=== PATIENT | male | born 1955 | race Caucasian/White ===

== ENCOUNTER 2019-02-19 03:23 | Inpatient (IN) | payer MEDICARE, MEDICAID ==
[~2019-02-19] VITALS: Ht 170.2 cm; Wt 104.3 kg
[2019-02-19 08:00] VITALS: BP 167/86
--- NOTE | 2019-02-19 09:17 | NUR ---
late entry due to downtime. patient admitted to 304. see downtime paper
--- NOTE | 2019-02-19 09:46 | NUR ---
RN note Patient checked in the room, in stable condition. Needs attended. at bedside. No distress, no SOB, denied pain or discomfort. Safety precautions initiated. Will monitor accordingly.
[2019-02-19] MEDS ORDERED: NITROGLYCERIN 0.4 MG/TAB BOTTLE SL PRN (10:00)
[2019-02-19] MEDS ORDERED: ZOLPIDEM TARTRATE 5 MG TABLET PO PRN (10:00)
[2019-02-19] MEDS ORDERED: ACETAMINOPHEN 325 MG TABLET PO PRN (10:00)
[2019-02-19] MEDS ORDERED: MAG HYDROX/AL HYDROX/SIMETH 30 ML UDC PO PRN (10:00)
[2019-02-19] MEDS ORDERED: HYDROCODONE/APAP 5/325MG 1 EACH TABLET PO PRN (10:00)
[2019-02-19] MEDS ORDERED: MORPHINE SULFATE INJ 2 MG/ML DISP.SYRIN IV PRN (10:00)
[2019-02-19] MEDS ORDERED: ONDANSETRON HCL/PF 4 MG/2 ML VIAL IVP PRN (10:00)
[2019-02-19] MEDS ORDERED: MAGNESIUM HYDROXIDE 30 ML UDC PO PRN (10:00)
--- NOTE | 2019-02-19 10:00 | NUR ---
RN note Patient seen by inspector watch train, Dr. Martin. Per MD, patient will have stress test. orders of NPO except meds. New orders noted and will carry out.
[2019-02-19] MEDS ORDERED: HYDR-4077 PO (10:50)
[2019-02-19] MEDS ORDERED: ERGO500040 PO (10:50)
[2019-02-19] MEDS ORDERED: ATOR40TA PO (10:50)
[2019-02-19] MEDS ORDERED: ESOM40CA52 PO (10:50)
[2019-02-19] MEDS ORDERED: FURO-144 PO (10:51)
[2019-02-19] MEDS ORDERED: NIFE60TA69 PO (10:51)
[2019-02-19] MEDS ORDERED: INSU100V37 SQ (10:51)
[2019-02-19] MEDS ORDERED: ICOS1CAP PO (10:51)
[2019-02-19] MEDS ORDERED: FOLI0.8T PO (10:51)
[2019-02-19] MEDS ORDERED: SEMA0.25 SQ (10:51)
[2019-02-19] MEDS ORDERED: FLUT1BLS6 IH (10:51)
[2019-02-19] MEDS ORDERED: VALS1TAB4 PO (10:51)
[2019-02-19] MEDS ORDERED: ASPI-869 PO (10:51)
[2019-02-19] MEDS ORDERED: ALBU18HF2 IH (10:51)
[2019-02-19] MEDS ORDERED: CARV6.252 PO (10:51)
[2019-02-19] MEDS ORDERED: GABA-534 PO (10:51)
[2019-02-19] MEDS ORDERED: SPIR25TA PO (10:51)
[2019-02-19] MEDS ORDERED: NITR0.4T48 SL (10:51)
[2019-02-19] MEDS ORDERED: GLIM4TAB4 PO (10:51)
[2019-02-19] MEDS ORDERED: IBUP-1955 PO (10:51)
[2019-02-19] MEDS ORDERED: INSU100I4 SQ (10:51)
[2019-02-19] MEDS ORDERED: MAGN400T26 PO (10:51)
[2019-02-19] MEDS ORDERED: FUROSEMIDE 40 MG/4 ML VIAL IV ONE (11:00)
[2019-02-19] MEDS ORDERED: REGADENOSON 0.4 MG/5 ML DISP.SYRIN IVP ONE (11:00)
[2019-02-19] MEDS: CARVEDILOL 6.25 MG TABLET PO SCH ×2 (11:49→21:00)
[2019-02-19] MEDS: CLONIDINE HCL 0.1 MG TABLET PO PRN (11:49)
[2019-02-19] MEDS: ASPIRIN EC 81 MG TABLET.DR PO SCH (11:49)
[2019-02-19 12:36] LABS: POTASSIUM 4.3 mmol/L (3.5-5.1)
[2019-02-19 12:37] LABS: BILIRUBIN,TOTAL 0.5 mg/dL (0.2-1.0); CALCIUM, SERUM 8.7 mg/dL (8.5-10.1); CREATININE 1.5 mg/dL (0.6-1.3)
[2019-02-19 12:38] LABS: ALBUMIN 3.6 g/dL (3.4-5.0); TOTAL PROTEIN, SERUM 7.4 g/dL (6.4-8.2)
--- NOTE | 2019-02-19 12:38 | NUR ---
RN note Patient picked up for Lexscan/stress test by [place] via wheelchair.
[2019-02-19 12:55] LABS: WHITE BLOOD COUNT (AUTO) 6.4 K/uL (4.3-11.0)
[2019-02-19 12:56] LABS: EOSINOPHILS % (AUTO) 2.4 % (0.0-6.0); HEMATOCRIT 31 % (39-51); HEMOGLOBIN 10.2 g/dL (13.5-17.5); LYMPHOCYTES # (AUTO) 0.7 /CMM (0.8-4.8); LYMPHOCYTES % (AUTO) 10.8 % (20.0-44.0); MEAN CORPUSCULAR HGB CONC 33 g/dl (31.0-36.0); MEAN CORPUSCULAR VOLUME 87 fL (80-96); MONOCYTES # (AUTO) 0.4 /CMM (0.1-1.30); MONOCYTES % (AUTO) 5.7 % (2.0-12.0); NEUTROPHILS # (AUTO) 5.1 /CMM (1.8-8.9); NEUTROPHILS % (AUTO) 80.1 % (43.0-81.0); PLATELET COUNT (AUTO) 186 /CMM (150-450); RED BLOOD CELL COUNT(AUTO) 3.58 MIL/uL (4.5-6.0)
[2019-02-19 12:57] LABS: BASOPHILS # (AUTO) 0.1 /CMM (0.0-0.2)
--- NOTE | 2019-02-19 13:30 | NUR ---
RN note Patient came back from stress test, denies pain or any discomfort. V/S: 151/61, 70, 16, 98.6, 96%. Given resumed diet and scheduled med. is at bedside. Call light within, will continue to monitor.
[2019-02-19] MEDS: hydrALAZINE HCL 50 MG TABLET PO SCH ×2 (13:45→17:12)
--- NOTE | 2019-02-19 14:52 | NUR ---
rn notes: release of med record Released of information consented and signed by patient. Called Dr Nik Ross, patient's fuel handler, and requested for patient's medical record (echocardiogram note and progress note).
--- NOTE | 2019-02-19 14:55 | NUR ---
rn notes Medical records from Dr Nik Ross's office received via fax. Flagged in the patient's chart
[2019-02-19 16:00] VITALS: BP 143/79
--- NOTE | 2019-02-19 19:45 | NUR ---
RN CLOSING NOTES PATIENT IN STABLE CONDITION. ALL NEEDS ATTENDED AND PROVIDED. ALL DUE MEDICATIONS GIVEN ORDERED. KEPT PATIENT SAFE AND COMFORTABLE. BED IN LOW/LOCKED POSITION, SIDERAILS UP X 2, CALL LIGHT IN REACH. ENDORSED TO NIGHT RN FOR YASIR.
--- NOTE | 2019-02-19 20:15 | NUR ---
NUCLEAR WORKER TECHNICIAN NOTES RECEIVED PATIENT AWAKE IN BED STABLE CONDITION. AT BEDSIDE, SAFETY MEASURES INPLACED, BED IN LOW/LOCKED POSITION, SIDERAILS UP X 2, CALL LIGHT WITH IN EASY REACH. PERIPHERAL IV ACCESS INTACT AND PATENT, NO SIGNS OF ACUTE RESPIRATORY OR CARDIAC DISTRESS NOTED, ALL NEEDS ATTENDED, KEPT COMFORTABLE, MONITORS ON AND WORKING PROPERLY. DENIES PAIN AT THIS TIME. WILL CONTINUE TO MONITOR ACCORDINGLY.
[2019-02-19 20:36] VITALS: BP 180/82
[2019-02-19] MEDS ORDERED: SIMVASTATIN 20 MG TABLET PO SCH (22:00)
[2019-02-20] VITALS: BP 180/82
[2019-02-20 00:01] VITALS: BP 182/89
[2019-02-20 00:40] VITALS: BP 156/88
[2019-02-20 02:36] LABS: APPEARANCE,URINE CLEAR (CLEAR); BILIRUBIN,URINE NEGATIVE (NEGATIVE); BLOOD, URINE NEGATIVE Ery/uL (NEGATIVE); COLOR,URINE YELLOW (YELLOW); KETONES,URINE NEGATIVE (NEGATIVE); LEUKOCYTE ESTERASE ,URINE NEGATIVE (NEGATIVE); NITRITE, URINE NEGATIVE (NEGATIVE); PROTEIN,URINE 100 mg/dl (NEGATIVE); UGLUCOSE NEGATIVE (NEGATIVE); UROBILINOGEN,URINE 0.2 EU/dL (0.2)
[2019-02-20 02:45] LABS: CREATININE, URINE 59.8 MG/DL (30.0-125.0); URINE TOTAL PROTEIN 132.5 mg/dL (0-11.9)
[2019-02-20 02:52] LABS: BACTERIA,URINE Few /HPF (None Seen); RBC,URINE 0-2 /HPF (0-2); SQUAMOUS EPITHELIAL CELL,UR Rare /HPF (None Seen)
[2019-02-20 04:35] LABS: EOSINOPHIL,URINE None Seen
--- NOTE | 2019-02-20 06:11 | NUR ---
SECOND BUTLER NOTES ALL NEEDS ATTENDED AND MET, PATIENT AWAKE IN BED STABLE CONDITION. ABLE TO REST AND SLEPT AT INTERVALS, SAFETY MEASURES IN PLACED, BED IN LOW/LOCKED POSITION, SIDE RAILS UP X 2, CALL LIGHT WITH IN EASY REACH. PERIPHERAL IV ACCESS INTACT AND PATENT, NO SIGNS OF ACUTE RESPIRATORY OR CARDIAC DISTRESS NOTED, ALL NEEDS ATTENDED, KEPT COMFORTABLE, MONITORS ON AND WORKING PROPERLY. DENIES PAIN AT THIS TIME. WILL ENDORSED TO AM NURSE FOR CONTINUITY OF CARE.
[2019-02-20 06:36] LABS: BASOPHILS % (AUTO) 0.8 % (0.0-2.0); EOSINOPHILS % (AUTO) 3.5 % (0.0-6.0); HEMATOCRIT 29 % (39-51); HEMOGLOBIN 9.9 g/dL (13.5-17.5); LYMPHOCYTES # (AUTO) 0.7 /CMM (0.8-4.8); LYMPHOCYTES % (AUTO) 11.7 % (20.0-44.0); MEAN CORPUSCULAR HGB CONC 34 g/dl (31.0-36.0); MEAN CORPUSCULAR VOLUME 86 fL (80-96); MONOCYTES # (AUTO) 0.5 /CMM (0.1-1.30); MONOCYTES % (AUTO) 8.2 % (2.0-12.0); NEUTROPHILS # (AUTO) 4.3 /CMM (1.8-8.9); NEUTROPHILS % (AUTO) 75.8 % (43.0-81.0); PLATELET COUNT (AUTO) 185 /CMM (150-450); RED BLOOD CELL COUNT(AUTO) 3.43 MIL/uL (4.5-6.0); WHITE BLOOD COUNT (AUTO) 5.7 K/uL (4.3-11.0)
[2019-02-20 07:04] LABS: ALBUMIN 3.5 g/dL (3.4-5.0); BILIRUBIN,TOTAL 0.5 mg/dL (0.2-1.0); CALCIUM, SERUM 8.5 mg/dL (8.5-10.1); CREATININE 1.6 mg/dL (0.6-1.3); MAGNESIUM 1.7 mg/dL (1.8-2.4); PHOSPHORUS 4.1 mg/dL (2.5-4.9); POTASSIUM 3.8 mmol/L (3.5-5.1); TOTAL PROTEIN, SERUM 7.2 g/dL (6.4-8.2)
[2019-02-20 07:08] LABS: THYROID STIMULATING HORMONE 2.829 uIU/mL (0.358-3.74)
[2019-02-20] MEDS: CLONIDINE HCL 0.1 MG TABLET PO PRN (07:17)
[2019-02-20 08:00] VITALS: BP 183/83
--- NOTE | 2019-02-20 08:00 | NUR ---
Tele/RN - Assessment Received patient in bed. Awake, alert and oriented 4, swazi speaking but speaks a little bit of engllish. No complaints of pain or discomfort. No complaints of chest pain noted. IV site noted on L hand with 20g, intact, no signs and symtoms of phlebitis or infliltration noted. Normal sinus rythym. Lung sounds clear. Respirations even and unlabored. All due medications administered, pt was given BP medications as ordered and scheduled. Tolerated well. No ASE noted.
[2019-02-20] MEDS: ASPIRIN EC 81 MG TABLET.DR PO SCH (08:42)
[2019-02-20] MEDS: hydrALAZINE HCL 50 MG TABLET PO SCH ×2 (08:42→13:01)
[2019-02-20] MEDS: CARVEDILOL 6.25 MG TABLET PO SCH (08:42)
[2019-02-20] MEDS ORDERED: HYDR-4077 PO (10:14)
[2019-02-20] MEDS ORDERED: CARV12.5 PO (10:14)
[2019-02-20] MEDS: Magnesium 1GM/D5W 100ML PREMIX 100 ML IV SCH ×2 (11:06→12:08)
[2019-02-20 13:01] VITALS: BP 131/57
--- NOTE | 2019-02-20 15:40 | NUR ---
Tele/RN - Discharge Patient alert and oriented throughout the shift, discharged home in stable condition, remain afebrile, denies chest pain, not in any form of distress, ambulatory with steady gait. Reviewed discharge instructions with patient and Lydia both verbalized full understanding of all teachings including medications and follow-up care with PCP and chemistry associate within 1 week. Patient was advised to seek immediate medical attention for worsening symptoms, chest pain, shortness of breath, palpitations, abdominal pain/distention, intractable nausea and vomiting, diarrhea, hematochezia, melena, weakness, loss of consciousness, neurological deficit, or any other emergent concerns. All belongings with patient and he deny any missing items. Patient refused photos to be taken of skin, no breakdown. Saline lock removed on the left hand with catheter tip intact, no redness, no swelling noted at the site. Discharge paperwork signed and copies were given per protocol. Written prescription given to patient. Accompanied to the lobby via wheelchair and transported by private car by Lydia.
[2019-02-20] MEDS ORDERED: CARVEDILOL 6.25 MG TABLET PO SCH (21:00)
[2019-02-21 12:06] LABS: *SPE A/G RATIO 0.9 (0.7-1.7); *SPE ALBUMIN 3.1 g/dL (2.9-4.4); *SPE ALPHA-1-GLOBULIN 0.3 g/dL (0.0-0.4); *SPE ALPHA-2-GLOBULIN 0.9 g/dL (0.4-1.0); *SPE BETA GLOBULIN 1.2 g/dL (0.7-1.3); *SPE GLOBULIN, TOTAL 3.5 g/dL (2.2-3.9); *SPE M-SPIKE Not Observed g/dL (Not Observed); *SPEGAMMA GLOBULIN 1.1 g/dL (0.4-1.8)
[2019-02-21 13:16] LABS: PTH, INTACT 68 pg/mL (15-65)
== END 2019-02-20 15:49 | disposition home or self-care (01) | DRG 281 ==
LOC: ER 03:23 → TELE 09:16 → MED 02-20 15:45
DX: I16.0 Hypertensive urgency (principal); I21.A1 Myocardial infarction type 2; J81.1 Chronic pulmonary edema; I50.32 Chronic diastolic (congestive) heart failure; N18.3 Chronic kidney disease, stage 3 (moderate); E11.22 Type 2 diabetes mellitus with diabetic chronic kidney disease; I25.10 Atherosclerotic heart disease of native coronary artery without angina pectoris; Z95.1 Presence of aortocoronary bypass graft; E11.21 Type 2 diabetes mellitus with diabetic nephropathy; D63.1 Anemia in chronic kidney disease; E78.5 Hyperlipidemia, unspecified; Z87.891 Personal history of nicotine dependence; I13.0 Hypertensive heart and chronic kidney disease with heart failure and stage 1 through stage 4 chronic kidney disease, or unspecified chronic kidney disease
CPT/HCPCS: 36415; 71045-TC; 76770-TC; 80053-TC; 80061-TC; 81000-TC; 82550-TC; 82570-TC; 82728-TC; 83540-TC; 83735-TC; 83880; 83970; 84100-TC; 84155; 84155-TC; 84165; 84300-TC; 84443-TC; 84484-TC; 85025-TC; 85610-TC; 85730-TC; 87081-TC; 93307-TC; A9502; G0378; J1940; J2785; J3475